=== PATIENT | female | born 1970 | race Caucasian/White ===

== ENCOUNTER → 2016-12-01 | Outpatient (CLI) | payer OTHER ==
[~2016-12-01] MED LIST: MTR600X PO; MULT-506 PO
--- NOTE | 2016-12-01 18:17 | DIAGNOSTIC IMAGING REPORT ---
RIGHT TOE(S) MIN 2 VIEWS CLINICAL HISTORY: S99.921A Right trauma COMPARISON: None. DISCUSSION: The bones and joint spaces appear intact. There is no evidence of fracture, dislocation or bony disease. Soft tissue edema about the third toe. IMPRESSION: Soft tissue edema. No acute bony antibody. Electronically signed by: Kip Funes M.D. 12/01/2016 6:15 PM Dictated Date/Time: 12/01/2016 6:11 PM
== END | disposition home or self-care (01) ==
LOC: C.RAD 17:44
PROVIDERS: ATTEND Physician Assistant Medical
DX: S99.921A Unspecified injury of right foot, initial encounter (principal); X58.XXXA Exposure to other specified factors, initial encounter